=== PATIENT | male | born 1965 | race Caucasian/White ===

== ENCOUNTER 2020-07-05 13:15 | Outpatient (CLI) | payer OTHER, SELFPAY ==
--- NOTE | ~2020-07-05 | XR_ITS ---
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 No fracture or dislocation, periosteal reaction or bone destruction of the radius or ulna. Normal ali gnment at the elbow and wrist joints. 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
--- NOTE | ~2020-07-05 | XR_ITS ---
XR forearm RT 2V DATE: 07/05/2020 13:29 INDICATION: Bilateral forearm pain in the joint areas TECHNIQUE: AP and lateral views of the right forearm COMPARISON: None FINDINGS: There is osteoarthritic spurring at the elbow joint. There is spurring at the radial ulnar joint. No fracture or dislocation, periosteal reaction or bone destruction of the radius or ulna. Normal ali gnment at the elbow and wrist joints. IMPRESSION: Prominent osteoarthritic change at the right elbow joint Radioulnar spurring No fracture, dislocation, periosteal reaction or bone destruction Reviewed, dictated and finalized at location B.
== END 2020-07-05 13:16 | disposition home or self-care (01) ==
PROVIDERS: Visit Provider Orthopaedic Surgery
DX: M19.021 Primary osteoarthritis, right elbow (principal); M19.022 Primary osteoarthritis, left elbow
CPT/HCPCS: 73090

== ENCOUNTER 2022-04-25 11:05 | Outpatient (CLI) | payer OTHER, SELFPAY ==
--- NOTE | ~2022-04-25 | XR_ITS ---
EXAMINATION: XR chest 2V Exam Date/Time: 04/25/2022 11:16 ARTIST MANNEQUIN COLORING HISTORY: R06.00 - Dyspnea, unspecified, COUGH Comparison: None available. RESULT: Lines, tubes, and devices: None. Lungs and pleura: Flattened hemidiaphragms. Apical pleural thickening. Linear atelectasis/scar in th e left lung base. Senescent change. Cardiomediastinal silhouette: Unremarkable. Other: No acute osseous or upper abdominal finding. IMPRESSION: No acute cardiopulmonary process. Reviewed, dictated and finalized at location K. [facility]ORING
== END 2022-04-25 11:06 | disposition home or self-care (01) ==
PROVIDERS: PCP Internal Medicine; Visit Provider Internal Medicine
DX: R06.00 Dyspnea, unspecified (principal)
CPT/HCPCS: 71046

== ENCOUNTER 2022-05-31 13:59 | Outpatient (CLI) | payer OTHER, SELFPAY ==
--- NOTE | 2022-05-31 16:36 | WPDPFTINT ---
PFT Procedure Performed PFT Procedure Performed Plethysmography (Lung Vol) Diffusing Cap (DLCO) Flow Vol Loop Spirometry w/o Bronchodil PFT Interpretation This is a pulmonary function test with spirometry, plethysmography and diffusing capacity. The test was performed and results interpreted in accordance with the 2019 and 2005 ATS/ERS Task Force guidelines respectively using the Global Lung Function Initiative-2012 reference equations. Patient demonstrated good effort and cooperation. Reproducibility criteria were met. The quality of the spirometry maneuver was Grade A. Findings: Spirometry: There is decreased maximal expiratory air all airflow at all lung volumes with concave expiratory flow tracing. The FVC is 3.41 L, 70% predicted. The FEV1 is 2.10 L, 56% predicted. The FEV1: FVC ratio 62%. Plethysmography: The total lung capacity 7.66 L, 110% predicted. The functional residual capacity is 5.10 L, 141% predicted. The residual volume is 4.25 L, 199% predicted. Diffusing capacity: The diffusing capacity unadjusted for hemoglobin and carboxyhemoglobin is 23.4, 79% predicted. The diffusing capacity adjusted for alveolar volume is 4.53, 103% predicted. Impression: There is a moderately severe obstructive abnormality. The increase in residual volume is consistent with air trapping from an obstructive abnormality. The diffusing capacity is normal. There are no prior studies for comparison
== END 2022-05-31 14:00 | disposition home or self-care (01) ==
LOC: ANHPFT 14:00
PROVIDERS: PCP Internal Medicine; Visit Provider Internal Medicine
DX: R06.00 Dyspnea, unspecified (principal); R94.2 Abnormal results of pulmonary function studies
CPT/HCPCS: 94375; 94726; 94729

== ENCOUNTER 2024-05-14 03:37 | Day surgery (SDC) | payer MEDICARE, MEDICAID, SELFPAY ==
[2024-05-07 14:35] VITALS: BMI 28.8
--- OUTSIDE RECORDS SUMMARY | 2024-05-14 03:47 | XMS_ITS | Continuity of Care Document ---
Author Organization [facility] Address [address] [place] [address] [place] [address] Phone Care Team Providers Care Grocery Bagger Name Role Phone Getachew Magallanes MD Unavailable Unavailable Allergies, Adverse Reactions, Alerts Substance Reaction Status Criticality codeine Active No Information Medications Medication Instructions Dosage Effective Dates (start - stop) Status Comments Percocet 10 mg-325 mg tablet take 1 tablet by oral route every 6 hours as needed 1.00 tablet - Active PRN for pain, avoid driving or oeprate machines omeprazole 20 mg capsule,delayed release take 2 capsule by oral route every day before a meal 40 MG - Active Procedures Procedure Date OFFICE/OUTPATIENT VISIT, EST PREV VISIT, EST, AGE 40-64 OFFICE/OUTPATIENT VISIT, EST OFFICE/OUTPATIENT VISIT, EST OFFICE/OUTPATIENT VISIT, EST OFFICE/OUTPATIENT VISIT, EST OFFICE/OUTPATIENT VISIT, EST OFFICE/OUTPATIENT VISIT, EST PREV VISIT, NEW, AGE 40-64 Advance Directives Directive Yes / No Effective Date File Name No Information Encounters Encounter Description Practice Location Reason(s) For Visit Diagnoses Date Provider Providers Copied on Encounter OFFICE/OUTPA TIENT VISIT, EST [facility], [address] [place] [address], [id number], [place] tel:[phone] [facility] Medicine ED1 (chief complaint)anx iety1 (chief complaint)chr onic pain1 (chief complaint) Chronic pain syndromeMale erectile dysfunction, unspecifiedGener alized anxiety disorderHyperlip idemia Dec 6 Elpidio Chilel. [address], [place], [place], [id number] , [place]. tel:[phone] Referring Provider: Taco Herr [address], [place], [place], [id number]. tel:[phone] PREV VISIT, EST, AGE 40-64 [facility], [address], [place], [place], [address], [place] tel:[phone] [facility] Physical (chief complaint) Encntr for general adult medical exam w/o abnormal findings 5 Elpidio Chilel. [address], [address], [place], [place], [id number] , [place]. tel:[phone] Referring Provider: Taco Herr [address], [place], [place], [id number]. tel:[phone] OFFICE/OUTPA TIENT VISIT, EST [facility], [address], [place], [place], [address], [place] tel:[phone] [facility] anxiety (chief complaint)ins omnia (chief complaint)BEATRICE D (chief complaint)HLP (chief complaint)her quentin (chief complaint)ED (chief complaint) Dietary surveillance and counselingOther and unspecified hyperlipidemiaPa in in joint involving upper armBarrett esophagitisInsom quentin 5 Elpidio Chilel. [address], [place], [place], [id number] , [place]. tel:[phone] Referring Provider: Taco Herr [address], [place], [place], [address]. tel:[phone] OFFICE/OUTPA TIENT VISIT, EST [facility], [address], [place], [place], [address], [place] tel:[phone] [facility] abdominal pain (chief complaint)her quentin (chief complaint)elb ow pain (chief complaint) Other and unspecified hyperlipidemiaAb dominal PainHernia of other specified sites without mention of obstruction or gangrene 5 Elpidio Chilel. [address], [address], [place], [place], [address] , . tel:[phone] Referring Provider: Taco Herr [address], [place], [place], [address]. tel:[phone] OFFICE/OUTPA TIENT VISIT, [facility], [address] [place], [address], tel:[phone] [facility] pancreatitis (chief complaint)HLP (chief complaint)LFT (chief complaint)elb ow pain (chief complaint)anx iety (chief complaint) Dietary surveillance and counselingAcute pancreatitisGene ralized anxiety disorderOther and unspecified hyperlipidemia 5 Elpidio Chilel. [address], [address] [place], [address] , . tel:[phone] Referring Provider: Taco Herr [facility] [address], [place], [place], [id number]. tel:[phone] OFFICE/OUTPA TIENT VISIT, [facility], [address] [place] [address] [place], [address], [place] tel:[phone] [facility] HLP (chief complaint)LFT (chief complaint)thy roid (chief complaint)anx iety (chief complaint)elb ow pain (chief complaint) Dietary surveillance and counselingOther and unspecified hyperlipidemiaUn specified disorder of liverOther specified disorders of thyroidGeneraliz ed anxiety disorder 5 Elpidio Chilel. [address], [address] [place], [address] , [place]. tel:[phone] Referring Provider: Taco Herr [address], [place], [place], [address]. tel:[phone] OFFICE/OUTPA TIENT VISIT, [facility], [address] [place], [id number], [place] tel:[phone] [facility] colitis (chief complaint)anx iety (chief complaint)elb ow fracture (chief complaint) Dietary surveillance and counselingColiti s, enteritis, and gastroenteritis of presumed infectious originAcute duodenal ulcer without mention of hemorrhage or perforation, with obstructionGener alized anxiety disorderPain in joint involving upper arm 5 Elpidio Chilel. [address], [address], [place], [place], [address] , [place]. tel:[phone] Referring Provider: Taco Herr [facility] [address], [place], [place], [address]. tel:[phone] OFFICE/OUTPA TIENT VISIT, [facility], [address], [place], [place], [address], [place] tel:[phone] [facility] anxiety (chief complaint)elb ow pain (chief complaint)singh creatitis (chief complaint) Dietary surveillance and counselingAcute pancreatitisGene ralized anxiety disorderPain in joint involving upper arm 4 Elpidio Chilel. [address], [address], [place], [place], [address] , [place]. tel:[phone] Referring Provider: Taco Herr [facility] [address], [place], [place], [id number]. tel:[phone] PREV VISIT, NEW, AGE 40-64 [facility], [address], [place], [place], [address], [place] tel:[phone] [facility] Physical (chief complaint) Routine Medical ExamRoutine Medical Exam 4 Elpidio Chilel. [address], [place], [place], [address] , [place]. tel:[phone] Family History Family Member Type Diagnosis Age At Onset Mother Problem (finding) Unknown Disease Father Problem (finding) Unknown Disease Payers Payer name Insurance type Covered green party ID Authoriza tion(s) No Information Social History Type Description Quantity Date Captured Comments Alcohol Use Details No Caffeine Use Details Unknown Tobacco Use Status Occasional cigarette smoker Smoking Status Heavy tobacco smoker Sex Male Vital Signs Date / Time: Height Weight BMI Pulse Rate Blood Pressure Temperature Respiratory Rate Body Surface Area Head Circumference BMI percentile Pulse Ox Inhaled Ox 4:36 PM 180.34 cm 194.00 lbs 27.0 6 kg/m eter (2) 106 /min 123/93 mm[Hg] 98.3 F 18 /min Chief Complaint And Reason For Visit From encounter dated '01/06/2016 14:45'. ED1 (chief complaint). Description: Pt has ED. Pt has good libido. Pt denies any testicular pain ornodule. Pt has been having ED for several months. pt took his friend tricia which worked well. anxiety1 (chief complaint). Description: Pt has chronic anxiety and depression. Pt states that he has not been able to have sex for a while and he feels depresed about that, but overall he feels ok. Pt is off prozac, lamictal and trazodone. Pt feels better now regarding depression and anxiety except that he feels depressed due to ED pt denies any cyring spells. Pt denies any suicidal or homicdialthought. Pt does not want depression meds anymore chronic pain1 (chief complaint). Description: Pt has chornic elbow pain on right side. Pt seen ortho and was told he has ulnar nerve issue and he needs surgery but he told me he does not have time for surgery due to work Pt notices hand weakness sometimes. Plan Of Treatment Date Type Action Status Goal Tobacco cessation counseling completed Goal Tobacco cessation counseling completed Goal Tobacco cessation counseling completed Goal Tobacco cessation counseling completed Goal Tobacco cessation counseling completed Goal Tobacco cessation counseling completed Referral Ordered: Referral: Genrl Surg. ordered Referral Ordered: NUC MED HIDA (HEPATOBILIARY) SCAN ordered Referral Ordered: US EXAM, ABDOM, COMPLETE ordered Referral Ordered: Referral: Gastroentergy. Evaluate and treat. ordered Referral Ordered: Referral: Ortho Surg. Evaluate and treat. ordered History Of Present Illness Encounter Date Complaint History Of Prese nt Illness chronic pain1 Pt has chornic e lbow pain on right side. Pt seen ortho and was told he has ulnar nerve issue and he needs surgery but he told me he does not have time for surgery due to work Pt notices hand weakness sometimes. anxiety1 Pt has chronic a nxiety and depression. Pt states that he has not been able to have sex for a while and he feels depresed about that, but overall he feels ok. Pt is off prozac, lamictal and trazodone. Pt feels better now regarding depression and anxiety except that he feels depressed due to ED pt denies any cyring spells. Pt denies any suicidal or homicdial thought. Pt does not want depression meds anymore ED1 Pt has ED. Pt noble s good libido. Pt denies any testicular pain or nodule. Pt has been having ED for several months. pt took his friend tricia which worked well. Physical Pt needs annual physical. Pt has HLP. Pt taks zocor. Pt denies any myalgia. Pt still has mildly elevated Tc. Pt has chronic right elbow pain with radiation to right forearm. Pt is seeing ortho and will do NCS soon. pt has chornic GERD and liat esophagus. Pt is taking omeprzole 40 mg daily and denies any GERd symptoms Pt denies any GI complaitns Pt still has not seen GI yet. Pt missed his appoitnment twice, Pt states that trazodone works well for sleep but he thinks it is too strong. elbow pain Pt has low libid o and ED for several months. Pt denies any testicular pain or issue ED Pt has low libid o and ED for several months. Pt denies any testicular pain or issue hernia Additional infor mation: Pt recently had abdominal hernia surgery. PT c/o pain around umblical area/ Pt denies any drainage. Pt denies any other type of abd pain. Pt did not don HIDA scan. HLP Pt states that h e takes zocor but he is not taking daily. He still has not done lab yet GERD Additional infor mation:Pt has corral esophagus. Pt takes omerpazole but only once per day. Pt is noncompliant. Pt denies any GI complaints. insomnia The patient pres ents for insomnia. Relevant history: a BMI of 27.89. Additional information: Pt states that he hsa diffiuclty falling asleep. Pt denies any snoring or any daytime fatigue. anxiety Additional infor mation: Pt has anxiety and depression and mood swings. Pt has been taking prozac and lamictal and doing ok. Pt denies any suicidal thought. Instructions Date Instruction Additional Infor mation Prescribed Activity and Exercise Education Related to Dietary Surveillance and Counseling Prescribed Diet Educ ation/Lifestyle Education Regarding Diet Related to Dietary Surveillance and Counseling Decrease caloric intake Related to Dietary surveillance counseling Physical activity counseling Rel ated to Dietary surveillance counseling Physical activity counseling Rel ated to Dietary surveillance counseling Decrease caloric intake Related to Dietary surveillance counseling Dietary counseling Related to Di etary surveillance counseling Decrease caloric intake Related to Dietary surveillance counseling Decrease caloric intake Related to Dietary surveillance counseling Dietary counseling Related to Di etary surveillance counseling Assessments Type Assessment Date assessment Chronic pain syndrome 6 assessment Male erectile dysfunction, unspe cified assessment Generalized anxiety disorder Dec assessment Hyperlipidemia Mental Status Date Cognitive Assessment Orientation - [place] ed to time, place, person, situation.
--- OUTSIDE RECORDS SUMMARY | 2024-05-14 03:47 | XMS_ITS | Clinical Summary ---
Author Organization [facility] Address [address] [place] [address] Care Team Providers Care Log Buncher Name Role Phone Elio Gtz MD Unavailable [phone] Thony Jewell MD Primary Care Provider [phone] Renea Maxwell MD Unavailable [phone] Kathi Espino Unavailable [phone] Allergies No known active allergies Medications Anoro Ellipta 62.5-25 mcg/actuation blister with device 1 puff daily 3 Active losartan (COZAAR) 50 mg tablet Take 1 tablet (50 mg total) by mouth daily 4 Active metoprolol tartrate (LOPRESSOR) 50 mg immediate release tablet Take 1 tablet (50 mg total) by mouth 2 (two) times a day Active clopidogreL (PLAVIX) 75 mg tablet Take 1 tablet (75 mg total) by mouth daily Active aspirin 81 mg chewable tabletIndicatio ns:prevention of thrombosis Take 1 tablet (81 mg total) by mouth daily 30 tablet 09/25/19 25 Active ezetimibe (ZETIA) 10 mg tablet Take 1 tablet (10 mg total) by mouth nightly 30 tablet 09/25/19 25 Active nitroglycerin (NITROSTAT) 0.[address] 1 tablet (0.4 mg total) under the tongue every 5 (five) minutes as needed for chest pain 30 tablet 09/25/19 25 Active rosuvastatin (CRESTOR) 40 mg tablet Take 1 tablet (40 mg total) by mouth nightly 30 tablet 09/25/19 25 Active albuterol HFA (ProAir HFA) 90 mcg/actuation inhaler Inhale 2 puffs every 4 (four) hours as needed for wheezing or shortness of breath 8.5 g 09/25/19 25 Active Active Problems Problem Noted Date Diagnosed Date Chest pain, unspecified type 09/24/2023 CAD (coronary artery disease) 08/28/2022 Chest pain 07/29/2021 Surgical History Surgery Date Site/Laterality Comments FACIAL SURGERY LEG SURGERY HERNIA REPAIR Medical History Medical History Date Comments Broken jaw (HCC) Depression Hypertension CAD (coronary artery disease) Lung disease Social History Tobacco Use Types Packs/Day Years Used Date Smoking Tobacco: Every Day Cigarettes Smokeless Tobacco: Never Tobacco Cessation:Ready to Q uit: Yes; Counseling Given: Yes Social Connection and Isolat ion Panel [NHANES] Answer Date Recorded In a typical week, how many times do you talk on the phone with family, friends, or neighbors? More than three times a week 07/29/2021 How often do you get togethe r with friends or relatives? More than three times a week 07/29/2021 How often do you attend chur or jewish services? Never 07/29/2021 Do you belong to any clubs o r organizations such as nondenominational groups, unions, fraternal or athletic groups, or school groups? No 07/29/2021 How often do you attend meet ings of the clubs or organizations you belong to? Never 07/29/2021 Are you , , di vorced, , never , or living with a partner? Living with partner 07/29/2021 AUDIT-C Answer Date Recorded Q1: How often do you have a drink containing alcohol? Never 09/24/2023 Q2: How many drinks containi ng alcohol do you have on a typical day when you are drinking? Patient does not drink Q3: How often do you have si x or more drinks on one occasion? Never 09/24/2023 Overall Financial Resource Strain (CARDIA) Answe r Date Recorded How hard is it for you to pa y for the very basics like food, housing, medical care, and heating? Somewhat hard 07/29/2021 Hunger Vital Sign Answer Date Recorded Within the past 12 months, y ou worried that your food would run out before you got the money to buy more. Never true 07/30/19 22 Within the past 12 months, t he food you bought just didn't last and you didn't have money to get more. Never true 07/29/2021 PRAPARE - Transportation Answer Date Re corded In the past 12 months, has l ack of transportation kept you from medical appointments or from getting medications? No 07/15 In the past 12 months, has l ack of transportation kept you from meetings, work, or from getting things needed for daily living? No 07/29/2021 Housing Stability Vital Sign Answer Jose e Recorded In the last 12 months, was t here a time when you were not able to pay the mortgage or rent on time? No 07/29/2021 In the last 12 months, how many places have you lived? 1 07/29/2021 In the last 12 months, was t here a time when you did not have a steady place to sleep or slept in a correction (including now)? No 07/29/2021 Personal Safety Answer Date Recorded Have you ever been in or are you currently in a harmful physical or emotional relationship or is someone making you feel afraid or unsafe? 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 Gender Identity Not on file Sexual Orientation Not on file Obstetrics History Last Filed Vital Signs Vital Sign Reading Time Taken Comments Blood Pressure 132/87 09/25/2023 4:15 PM CDT Pulse 81 09/25/2023 4:15 PM CDT Temperature 36.7 ??C (98 ??F) 09/25/2023 4:15 PM CDT Respiratory Rate 18 09/25/2023 4:15 PM CDT Oxygen Saturation 95% 09/25/2023 4:15 PM CDT Inhaled Oxygen Concentration - - Weight 104.3 kg (230 lb) 09/24/2023 10:38 PM CDT Height 177.8 cm (5' 10 ) 09/24/2023 10:38 PM CDT Body Mass Index 33 09/24/2023 10:38 PM CDT Plan of Treatment Health Maintenance Due Date Last Done Comments Colon Cancer Screening-Colonoscopy 1966 Depression Screening 1966 Hepatitis C Screening 1966 Prostate Cancer Screening-PSA 1966 DTaP/Tdap/Td Vaccine (1 - Tdap) 1977 Hepatitis B Screening 1984 Regular Well Visit/Exam 18-64 1984 Pneumococcal vaccine <65 (2 of 2 - PCV) 04/10/2015 1 06/11/2013 Zoster Vaccine (1 of 2) 2016 Influenza Vaccine (#1) 2023 04/10/2014 Medical Devices Implanted Type Area Aquaculture Farm Manager Device Identifier Shelf Expiration Date Model / Serial / Lot V[employer] Vascular 29668-11 Device Clsr Perclose Prostyle Sut-Mediatd Closure-Repair Sys - [id number] Implanted:Qty: 1 on 07/29/2021 by Elio Gtz MD at [facility] [employer] [id number] / / [employer] [id number] Device Clsr Perclose Prostyle Sut-Mediatd Closure-Repair Sys - [id number] Implanted:Qty: 1 on 07/29/2021 by Elio Gtz MD at [facility] [employer] [id number] / / Impella Cp Percutaneous Left Ventricular Assist Device [id number] - [id number] - [id number] Implanted:Qty: 1 on 07/29/2021 by Elio Gtz MD at [facility] [employer] 05/16/2023 [id number] / [id number] / [id number] [employer] X [id number] Resolute [place] 3.5mm 2.1-2.7fr 22mm 140cm Rapid Exchange - [id number] Implanted:Qty: 1 on 07/29/2021 by Elio Gtz MD at [facility] [employer] 01/06/2024 [id number] / / [id number] Vidal [employer] Device Clsr Perclose Prostyle Sut-Mediatd Closure-Repair Sys [id number] - [id number] Implanted:Qty: 1 on 09/07/2022 by Elio Gtz MD at [facility] [employer] 05/16/2024 [id number] / / [id number] [place] [address] MEDICARE Advance Directives For more information, please contact: [phone] * Full Code (Latest Code Status on File) Date Activated Date Inactivated Comments 09/24/2023 5:28 AM 09/25/2023 10:14 PM * Full Code Date Activated Date Inactivated Comments 09/07/2022 1:36 PM 09/07/2022 7:10 PM * Full Code Date Activated Date Inactivated Comments 07/29/2021 5:47 AM 07/31/2021 6:41 PM Care Teams Log Buncher Relationship Specialty Start Date End Date Thony Jewell MD PCP - General Family Practice 08/29/22 Elio Gtz MD Consulting Physician Interventional Cardiology 07/31/21 Renea Maxwell MD [address] [place] [address] Consulting Physician Cardiology 09/25/23 [place] [address] [address] [address] Physician Pattern Marker Orthopedic Surgery 09/25/23
--- OUTSIDE RECORDS SUMMARY | 2024-05-14 03:47 | XMS_ITS | Clinical Summary ---
Author Organization [facility] Address [facility] [place] [address] [place] [address] Care Team Providers Care Ingot Passer Name Role Phone Unavailable Primary Care Provider Unavailabl e Social History Tobacco Use Types Packs/Day Years Used Date Smoking Tobacco: Never Assessed Sex and Gender Information Value Date Recorded Sex Assigned at Not on file Legal Sex Male 8:32 PM CDT Gender Identity Not on file Sexual Orientation Not on file Plan of Treatment Health Maintenance Due Date Last Done Comments Colorectal Cancer Screening Colonoscopy (10 Years) 1966 Annual Physical 1969 Hepatitis C 1984 DTaP, Tdap and Td Vaccines ( 1 - Tdap) 1985 Hepatitis B Vaccines (1 of 3 - 19+ 3-dose series) 1985 Zoster Vaccines (1 of 2) 2016 COVID-19 Vaccine (2023-2 5 season) 2023 Influenza Adult (#1) 2024 Meningococcal B Vaccine Aged Out No l onger eligible based on patient's age to complete this topic Meningococcal Vaccine Aged Out No andres thalia eligible based on patient's age to complete this topic Pneumococcal Vaccine: Pediat rics (0 to 5 Years) and At-Risk Patients (6 to 64 Years) Aged Out No longer eligible b ased on patient's age to complete this topic RSV Immunizations Under 20 Months Aged Out No longer eligible based on patient's age to complete this topic
--- OUTSIDE RECORDS SUMMARY | 2024-05-14 03:47 | XMS_ITS | CONTINUITY OF CARE DOCUMENT ---
Author Name rosegirma galindojuan Address Unknown Organization [facility] Address [address] [facility] [address] [place] [address] Phone [phone] Care Team Providers Care Contact Lens Technician Name Role Phone Elio Gtz MD Unavailable Elio Gtz MD Unavailable [phone] PROBLEMS Condition Status Date Provider Notes CAD (coronary artery disease) active Elio Gtz MD Hypertension, uncontrolled active Elio smith MD Hyperlipidemia active Elio Gtz MD Tobacco abuse active Elio Gtz MD NSTEMI active Elio Gtz MD Epigastric discomfort active Elio Gtz MD ENCOUNTERS Date Type Provider Location Encounter Diag nosis 0 - 0 In-person encounter Office Visit Elio Gtz MD [facility] 5 - 5 In-person encounter Office Visit Elio Gtz MD [facility] Epigastric discomfort 1 - 1 In-person encounter Office Visit Elio Gtz MD [facility] 2 - 2 In-person encounter Office Visit Elio Gtz MD [facility] 3 - 3 In-person encounter Office Visit Elio Gtz MD [facility] 2 - 2 In-person encounter Office Visit Elio Gtz MD [facility] CAD (coronary artery disease)Hypertension, uncontrolledHyperlipidemiaTobacco abuseNSTEMI VITAL SIGNS Date Observation Value Provider Body Mass Index (Ratio) 31.71 kg/m2 Lorenzo Gtz MD blood pressure, cuff size regular Ke rri Christopherduglasnelydiadio blood pressure, diastolic 86 mm[Hg] Ke rri Christopherduglasnelydiaelddakotah blood pressure, systolic 144 mm[Hg] Bhavna Yuandio oxygen saturation, oximetry 96 % Luna Christopherduglasnathalylydiadio respiratory rate E&M 12 /min Luna G ruenenfelder pulse rate 99 /min Luna Lissye lder weight E&M 221 [lb_av] Luna Christopherurimaryanne [facility] height E&M 70 [in_i] Luna Christophernia [facility] Body Mass Index (Ratio) 34.58 kg/m2 Lorenzo Gtz MD blood pressure, diastolic 75 mm[Hg] taryn Seth blood pressure, systolic 103 mm[Hg] She oneida Dorinda pulse rate 88 /min Shazia Dorinda respiratory rate E&M 20 /min Shazia Seth blood pressure, cuff size regular taryn Seth oxygen saturation, oximetry 98 % Shazia Seth weight E&M 241 [lb_av] Shazia Seth height E&M 70 [in_i] Shazia Seth weight E&M 240 [lb_av] Ophelia Lentz in Body Mass Index (Ratio) 34.43 kg/m2 Lorenzo Gtz MD blood pressure, diastolic 90 mm[Hg] Ri evelyn Padron blood pressure, systolic 130 mm[Hg] Bill jocelynn Padron oxygen saturation, oximetry 98 % Jo Ann Padron blood pressure, cuff size large Ri evelyn Padron respiratory rate E&M 16 /min Bernie Padron pulse rate 75 /min Jo Ann encinas weight E&M 240 [lb_av] Jo Ann encinas height E&M 70 [in_i] Jo Ann encinas Body Mass Index (Ratio) 33.28 kg/m2 Lorenzo iq Shamim blood pressure, cuff size large Mary rivas [place] blood pressure, diastolic 90 mm[Hg] Mary rivas [place] blood pressure, systolic 139 mm[Hg] Bry jocelynn [place] oxygen saturation, oximetry 99 % Fatemeh Segovia respiratory rate E&M 16 /min Courtney rosi [place] pulse rate 82 /min Fatemeh Lázaro swanson weight E&M 232 [lb_av] Fatemehshaun Sesay d height E&M 70 [in_i] Fatemeh Sesay d Body Mass Index (Ratio) 36.58 kg/m2 Lorenzo iq Shamim blood pressure, cuff size large Ke rri Christopheruenerhina blood pressure, diastolic 86 mm[Hg] Ke rri Gruenenfelddakotah blood pressure, systolic 122 mm[Hg] Ker ri Romero oxygen saturation, oximetry 97 % Luna Romero respiratory rate E&M 16 /min Luna G malikaenenfelder pulse rate 71 /min Luna Gruenenfe lder weight E&M 255 [lb_av] Luna Gruenenfe lder height E&M 70 [in_i] Luna Gruenenfe lder Body Mass Index (Ratio) 32.14 kg/m2 Lorenzo iq Shamim MD blood pressure, diastolic 90 mm[Hg] Li nkLogic blood pressure, systolic 140 mm[Hg] Ameena kLogic blood pressure, diastolic 90 mm[Hg] Lata Seymour blood pressure, systolic 140 mm[Hg] Vinnie Seymour oxygen saturation, oximetry 96 % Wm Seymour respiratory rate E&M 18 /min Larry Seymour pulse rate 81 /min Wm encinas weight E&M 224 [lb_av] Wm encinas height E&M 70 [in_i] Wm encinas RESULTS Date Observation Value Provider Reference Range Interpretation Location Estimated Glomerular Filtration Rate (calc) 87 mL/min/{1.73 _m2} [facility] >=60 Normal C, [place] [address] cholesterol, non-HDL, total 109 mg/dL [facility] C, [place] [address] lipoprotein, beta, serum, point, quantitative, calculated 75 mg/dL [facility] <=129 Normal C, [place] [address] HDL CHOLESTEROL 37 mg/dL [facility] >=40 Low C, [place] [address] triglyceride, serum, fasting 168 mg/dL [facility] <=149 High C, [place] [address] cholesterol, serum 146 mg/dL [facility] 30-199 Normal C, [place] [address] aspartate aminotransferase (SGOT), serum 24 1/L [facility] 10-50 Normal C, [place] [address] alanine aminotransferase (SGPT), serum 31 1/L [facility] 7-55 Normal C, [place] [address] Alkaline phosphatase 131 [facility] 40-130 High C, [place] [address] albumin, serum 4.6 g/dL [facility] 3.5-5.0 Normal C, [place] [address] protein, total, serum 8.4 g/dL [facility] 6.5-8.5 Normal C, [place] [address] bilirubin, serum, total 0.4 mg/dL [facility] 0.1-1.2 Normal C, [place] [address] calcium, serum 9.9 mg/dL [facility] 8.5-10.3 Normal C, [place] [address] blood glucose, random 98 mg/dL [facility] 70-199 Normal C, [place] [address] creatine, serum 1.01 mg/dL [facility] 0.80-1.30 Normal C, [place] [address] urea nitrogen, blood 9 mg/dL [facility] 6-25 Normal C, [place] [address] anion gap, serum 14 mmol/L [facility] 2-15 Normal C, [place] [address] carbon dioxide, venous blood 26 mmol/L [facility] 22-32 Normal C, [place] [address] chloride, serum 100 mmol/L [facility] 97-110 Normal C, [place] [address] potassium, serum 4.4 MMOL/L [facility] 3.3-4.9 Normal , [place] [address] sodium, serum 140 mmol/L [facility] 135-145 Normal C, [place] [address] prothrombin time (patient) 10.2 s [facility] 9.0-11.5 Normal international normalized ratio (INR) 1.0 [facility] Normal mean platelet volume 9.8 fL [facility] 7.5-12.5 Normal platelet count 365 THOUSAND/UL [facility] 140-400 Normal red blood cell distribution width 13.5 % [facility] 11.0-15.0 Normal mean corpuscular hemoglobin concentration, RBC 32.6 G/DL [facility] 32.0-36.0 Normal mean corpuscular hemoglobin, RBC 30.3 pg [facility] 27.0-33.0 Normal mean corpuscular volume, RBC 92.8 fL [facility] 80.0-100.0 Normal hematocrit, blood 48.7 % [facility] 38.5-50.0 Normal hemoglobin electrophoresis, blood 15.9 [facility] 13.2-17.1 Normal erythrocyte (RBC) count 5.25 MILLION/UL [facility] 4.20-5.80 Normal leukocyte (white blood cells) count, blood 9.5 THOUSAND/UL [facility] 3.8-10.8 Normal calcium, serum 10.0 mg/dL [facility] 8.6-10.3 Normal carbon dioxide, venous blood 28 mmol/L [facility] 20-32 Normal chloride, serum 103 mmol/L [facility] 98-110 Normal potassium, serum 5.3 mmol/L [facility] 3.5-5.3 Normal sodium, serum 139 mmol/L [facility] 135-146 Normal urea nitrogen/creatinine ratio, serum NOT APPLICABLE (calc) [facility] 6-22 creatinine, serum 1.01 mg/dL [facility] 0.70-1.30 Normal urea nitrogen, blood 14 mg/dL [facility] 7-25 Normal blood glucose, random 89 mg/dL [facility] 65-99 Normal cholesterol, non-HDL, total 85 MG/DL (CALC) [facility] <130 Normal cholesterol/HDL ratio, serum, percent 3.2 (calc) [facility] <5.0 Normal LDL cholesterol, serum 62 MG/DL (CALC) [facility] Normal triglyceride, serum, fasting 156 mg/dL [facility] <150 High HDL cholesterol, serum 38 mg/dL [facility] > OR = 40 Low cholesterol, serum 123 mg/dL [facility] <200 Normal alanine aminotransferase (SGPT), serum 43 1/L [facility] 9-46 Normal aspartate aminotransferase (SGOT), serum 21 1/L [facility] 10-35 Normal alkaline phosphatase, serum 133 1/L [facility] 35-144 Normal bilirubin, serum, total 0.4 mg/dL [facility] 0.2-1.2 Normal albumin/globulin ratio, serum 1.4 (calc) [facility] 1.0-2.5 Normal globulins, serum, total 3.2 G/DL (CALC) [facility] 1.9-3.7 Normal albumin, serum 4.5 g/dL [facility] 3.6-5.1 Normal protein, total, serum 7.7 g/dL [facility] 6.1-8.1 Normal calcium, serum 10.0 mg/dL [facility] 8.6-10.3 Normal carbon dioxide, venous blood 32 mmol/L [facility] 20-32 Normal chloride, serum 103 mmol/L [facility] 98-110 Normal potassium, serum 5.4 mmol/L [facility] 3.5-5.3 High sodium, serum 140 mmol/L [facility] 135-146 Normal urea nitrogen/creatinine ratio, serum NOT APPLICABLE (calc) [facility] 6-22 creatinine, serum 1.01 mg/dL [facility] 0.70-1.30 Normal urea nitrogen, blood 11 mg/dL [facility] 7-25 Normal blood glucose, random 99 mg/dL [facility] 65-139 Normal cholesterol, non-HDL, total 112 MG/DL (CALC) [facility] <130 Normal cholesterol/HDL ratio, serum, percent 3.6 (calc) [facility] <5.0 Normal LDL cholesterol, serum 82 MG/DL (CALC) [facility] Normal triglyceride, serum, fasting 201 mg/dL [facility] <150 High HDL cholesterol, serum 43 mg/dL [facility] > OR = 40 Normal cholesterol, serum 155 mg/dL [facility] <200 Normal HISTORY OF MEDICATION USE Medication Status Instructions Dates Provider Indications Com ments clopidogrel 75 mg tablet active TAKE 1 TABLET BY MOUTH EVERY DAY Radha Tai metoprolol tartrate 50 mg tablet active TAKE 1 TABLET BY MOUTH TWICE DAILY Radha Tai isosorbide mononitrate 30 mg tablet extended release 24 hr active Take 1 tablet by mouth once a day Elio Gtz MD Brilinta 90 mg tablet completed TAKE 1 TABLET BY MOUTH TWICE DAILY - Luna Jasso Brilinta 90 mg tablet completed Take 1 tablet by mouth twice a day - Dorothy Christian rosuvastatin 40 mg tablet active TAKE 1 TABLET BY MOUTH EVERY DAY Celestino Cordero aspirin 81 mg tablet,chewable active CHEW AND SWALLOW 1 TABLET BY MOUTH EVERY DAY Teresa Paulino ezetimibe 10 mg tablet completed TAKE ONE TABLET BY MOUTH EVERY DAY - Elio Gtz MD Plavix 75 mg tablet completed TAKE 1 TABLET ONCE DAILY - Radha Tai ezetimibe 10 mg tablet active Take 1 tablet by mouth once a day Elio Gtz MD ezetimibe 10 mg tablet completed TAKE 1 TABLET BY MOUTH DAILY - Elio Gtz MD bupropion HCl 150 mg tablet extended release 24 hr active TAKE 1 TABLET BY MOUTH EVERY DAY Fatemeh Luca losartan 50 mg tablet active TAKE 1 TABLET BY MOUTH EVERY DAY Radha Tai metoprolol tartrate 50 mg tablet completed TAKE 1 TABLET BY MOUTH TWICE A DAY - Radha Tai metoprolol tartrate 25 mg tablet completed Take 1 tablet by mouth twice a day - Elio Gtz MD bupropion HCl 150 mg tablet extended release 24 hr completed Take 1 tablet by mouth once a day - Ophelia Ferrara ezetimibe 10 mg tablet completed Take 1 tablet by mouth once a day - Elio Gtz MD aspirin 81 mg tablet,chewable completed Take 1 tablet by mouth once a day - Teresa Paulino albuterol sulfate 90 mcg/actuation HFA aerosol inhaler active Inhale 2 puff using inhaler as directed Luna Jasso nitroglycerin 0.4 mg tablet, sublingual active Place 1 tablet under tongue as directed Luna Jasso losartan 25 mg tablet completed Take 1 tablet by mouth once a day - Elio Gtz MD rosuvastatin 40 mg tablet completed Take 1 tablet by mouth once a day - Teresa Paulino bupropion HCl 150 mg tablet extended release 24 hr completed - Elio Gtz MD SOCIAL HISTORY Date Observation Value Provider drug use, illicit, d rug of choice marijuana Elio Gtz MD drug use yes Elio Moralez D alcohol use no Elio Swanson smoking/tobacco cess ation, patient education and counseling yes Elio Gtz MD number of years as a smoker 30 a Elio Gtz MD smoking history, tot al pack/day 5 cigs a day Elio Gtz MD cigarette use yes Elio Gtz MD smoking status Current every day smoker S gio Gtz MD smoking history, tot al pack/day 5 cigs a day Shazia Seth cigarette use yes Shazia Seth smoking status Current every day smoker Nadya Seth social history E&M S moking History: P vadim currently smokes every day. P vadim has been counseled to quit. Elio Gtz MD social history reviewed E&M revi ewed - no changes required Elio Gtz MD smoking/tobacco cess ation, patient education and counseling yes Jo Ann Padron number of years as a smoker 30 a Jo Ann Padron smoking history, tot al pack/day 1 Jo Ann Padron cigarette use yes Jo Ann boudreaux smoking status Current every day smoker R cathy Padron smoking/tobacco cess ation, patient education and counseling yes Elio Gtz MD social history E&M S moking History: P vadim currently smokes every day. Elio Gtz MD social history reviewed E&M revi ewed - no changes required Elio Gtz MD number of years as a smoker 30 a Fatemeh Segovia smoking history, tot al pack/day 1 Fatemeh Segovia cigarette use yes Fatemeh Amrit jeong smoking status Current every day smoker M cathy Luca number of years as a smoker 30 a Luna Jasso smoking history, tot al pack/day 1 Luna Romero cigarette use yes Luna wharton smoking status Current every day smoker K raji Jasso social history E&M S moking History: P vadim currently smokes every day. Elio Gtz MD social history reviewed E&M revi ewed - no changes required Elio Gtz MD drug use, illicit, d rug of choice marijuana Wm Seymour drug use yes Wm encinas alcohol use no Wm encinas number of years as a smoker 30 a Wm Seymour smoking history, tot al pack/day 1 Wm Seymour cigarette use yes Wm gama smoking status Current every day smoker L Agustochristal Lion FUNCTIONAL STATUS Date Observation Value Provider HRA, CV Assess/Plan, Angina (inactive) Management Plan continue current therapy Elio Gtz MD HRA, CV Assess/Plan, Angina (inactive) Management Plan continue current therapy Elio Gtz MD HRA, CV Assess/Plan, Angina (inactive) Management Plan continue current therapy Elio Gtz MD INSURANCE PROVIDERS Payer name Policy type / Coverage type [facility] [id number] HEALTHCARE AND FAMILY SERVICES Medicaid 1 [id number] ADVANCE DIRECTIVES Name Date DISCUSSED - NO DECISION MADE TREATMENT PLAN Date Name Performer [id number],N, Elio moralez MD [id number],S, Elio moralez MD [id number],S, Elio moralez MD [id number],SEilo MD [id number],C, B P today: 130/90 P rior BP: 139/90 (11/25/2021) Labs Reviewed: C reat: 1.01 (01/03/2022) C hol: 155 (01/03/2022) HDL: 43 (01/03/2022) LDL: 82 MG/DL (CALC) (01/03/2022) T (01/03/2022) Elio Gtz MD [id number],C,L DL 82, TG 201, advised him to make diet changes and continue on current medications. Elio Gtz MD [id number],C, P t has diffuse CAD due to high LDL and TG and smoking. He has stopped smoking. Pt has mild LAD disease after diagonal bifurcation and siginifcant diagonal disease. Elio Gtz MD [id number],C, Successful unprotected LM PCI for severe left main (80%) & severe ostial LAD (80%) stenosis with 3.5X22 roman stent extending from proximal LAD to ostial part of the left main. Lad part of the stent was post dilated with 4.0 NC balloon and left main part of the stent was post dilated with 5.0 NC balloon. MARIA R 3 flow with good angiographic result noted. Mid LAD after diagonal bifurcation has 50% stenosis. Diagonal is a major branch which bifurcates. These are relatively a smaller size but long both of these branches have 70-80% stenosis. Leaving these for medical management due to relatively smaller size. RCA is a dominant which has diffuse coronary ectasia in proximal and mid segment. Entire vessel is diffusely diseased gives rise to large PL and PDA. Asymptomatic. on GDMT W ill check routine stress test now to assess his exercise tolerance. Elio Gtz MD [id number],S, His updated medication list for this problem includes: Rosuvastatin 40 Mg Tablet (Rosuvastatin) ..... Take 1 tablet by mouth once a day Ezetimibe 10 Mg Tablet (Ezetimibe) ..... Take 1 tablet by mouth once a day Elio Gtz MD [id number],S, Successful unprotected LM PCI for severe left main (80%) & severe ostial LAD (80%) stenosis with 3.5X22 roman stent extending from proximal LAD to ostial part of the left main. Lad part of the stent was post dilated with 4.0 NC balloon and left main part of the stent was post dilated with 5.0 NC balloon. MARIA R 3 flow with good angiographic result noted. Mid LAD after diagonal bifurcation has 50% stenosis. Diagonal is a major branch which bifurcates. These are relatively a smaller size but long both of these branches have 70-80% stenosis. Leaving these for medical management due to relatively smaller size. RCA is a dominant which has diffuse coronary ectasia in proximal and mid segment. Entire vessel is diffusely diseased gives rise to large PL and PDA. Asymptomatic. on GDMT Elio Gtz MD [id number],S, S till smoking. Elio Gtz MD [id number],S, B P today: 139/90 P rior BP: 122/86 (08/26/2021) His updated medication list for this problem includes: Aspirin 81 Mg Tablet,chewable (Aspirin) ..... Take 1 tablet by mouth once a day Metoprolol Tartrate 25 Mg Tablet (Metoprolol tartrate) ..... Take 1 tablet by mouth twice a day Losartan 25 Mg Tablet (Losartan) ..... Take 1 tablet by mouth once a day Elio Gtz MD [id number],S,Recheck lipid s Elio Gtz MD [id number],B, Elio moralez MD [id number],B, Elio moralez MD [id number],C, Successful unprotected LM PCI for severe left main (80%) & severe ostial LAD (80%) stenosis with 3.5X22 roman stent extending from proximal LAD to ostial part of the left main. Lad part of the stent was post dilated with 4.0 NC balloon and left main part of the stent was post dilated with 5.0 NC balloon. MARIA R 3 flow with good angiographic result noted. Mid LAD after diagonal bifurcation has 50% stenosis. Diagonal is a major branch which bifurcates. These are relatively a smaller size but long both of these branches have 70-80% stenosis. Leaving these for medical management due to relatively smaller size. RCA is a dominant which has diffuse coronary ectasia in proximal and mid segment. Entire vessel is diffusely diseased gives rise to large PL and PDA. Asymptomatic. on GDMT Elio Gtz MD [id number],C,P t has diffuse CAD due to very high LDL and smoking. Pt has mild LAD disease after diagonal bifurcation and siginifcant diagonal disease. Elio Gtz MD [id number],S,T he Patient was reencouraged to stop smoking. Elio Gtz MD [id number],S,P t needs lab work to check lipid panel. His updated medication list for this problem includes: Ezetimibe 10 Mg Tablet (Ezetimibe) Rosuvastatin 40 Mg Tablet (Rosuvastatin) Elio Gtz MD [id number],C,U ncontrolled BP. Will order and RPM for pt. Pt needs cardiac rehab and smoking cessation. Will schedule renal Duplex, AA, and Carotid duplex for pt to check for any blockages. & #13;BP today: 140/90 His updated medication list for this problem includes: Metoprolol Tartrate 25 Mg Tablet (Metoprolol tartrate) Aspirin 81 Mg Tablet,chewable (Aspirin) Losartan 25 Mg Tablet (Losartan) Elio Gtz MD [id number],C,: I mpression: Successful unprotected LM PCI for severe left main (80%) & severe ostial LAD (80%) stenosis with 3.5X22 roman stent extending from proximal LAD to ostial part of the left main. Lad part of the stent was post dilated with 4.0 NC balloon and left main part of the stent was post dilated with 5.0 NC balloon. MARIA R 3 flow with good angiographic result noted. Mid LAD after diagonal bifurcation has 50% stenosis. Diagonal is a major branch which bifurcates. These are relatively a smaller size but long both of these branches have 70-80% stenosis. Leaving these for medical management due to relatively smaller size. RCA is a dominant which has diffuse coronary ectasia in proximal and mid segment. Entire vessel is diffusely diseased gives rise to large PL and PDA. Elio Gtz MD Cardiology:The Patient was reenc ouraged to stop smoking. Elio Gtz MD Cardiology:stable s tress test neg s till having cp and given his h/o CAD adn NSTEMI it is appropriate to start a long acting nitrate Elio Gtz MD Cardiology: H is updated medication list for this problem includes: Aspirin 81 Mg Tablet,chewable (Aspirin) ..... Chew and swallow 1 tablet by mouth every day Losartan 50 Mg Tablet (Losartan) ..... Take 1 tablet by mouth every day Metoprolol Tartrate 50 Mg Tablet (Metoprolol tartrate) ..... Take 1 tablet by mouth twice a day BP today: 144/86 P rior BP: 103/75 (08/18/2022) Labs Reviewed: C reat: 1.01 (08/30/2022) C hol: 123 (08/30/2022) HDL: 38 (08/30/2022) LDL: 62 MG/DL (CALC) (08/30/2022) T (08/30/2022) Elio Gtz MD Cardiology Elio Gtz MD Cardiology Elio Gtz MD Cardiology Elio Gtz MD Cardiology Elio Gtz MD Cardiology Elio Gtz MD Cardiology: B P today: 130/90 P rior BP: 139/90 (11/25/2021) Labs Reviewed: C reat: 1.01 (01/03/2022) C hol: 155 (01/03/2022) HDL: 43 (01/03/2022) LDL: 82 MG/DL (CALC) (01/03/2022) T (01/03/2022) Elio Gtz MD Cardiology:LDL 82, T G 201, advised him to make diet changes and continue on current medications. Elio Gtz MD Cardiology: P t has diffuse CAD due to high LDL and TG and smoking. He has stopped smoking. Pt has mild LAD disease after diagonal bifurcation and siginifcant diagonal disease. Elio Gtz MD Cardiology: Successful unprotected LM PCI for severe left main (80%) & severe ostial LAD (80%) stenosis with 3.5X22 roman stent extending from proximal LAD to ostial part of the left main. Lad part of the stent was post dilated with 4.0 NC balloon and left main part of the stent was post dilated with 5.0 NC balloon. MARIA R 3 flow with good angiographic result noted. Mid LAD after diagonal bifurcation has 50% stenosis. Diagonal is a major branch which bifurcates. These are relatively a smaller size but long both of these branches have 70-80% stenosis. Leaving these for medical management due to relatively smaller size. RCA is a dominant which has diffuse coronary ectasia in proximal and mid segment. Entire vessel is diffusely diseased gives rise to large PL and PDA. Asymptomatic. on GDMT W ill check routine stress test now to assess his exercise tolerance. Elio Gtz MD Cardiology: His updated medication list for this problem includes: Rosuvastatin 40 Mg Tablet (Rosuvastatin) ..... Take 1 tablet by mouth once a day Ezetimibe 10 Mg Tablet (Ezetimibe) ..... Take 1 tablet by mouth once a day Elio Gtz MD Cardiology: Successful unprotected LM PCI for severe left main (80%) & severe ostial LAD (80%) stenosis with 3.5X22 roman stent extending from proximal LAD to ostial part of the left main. Lad part of the stent was post dilated with 4.0 NC balloon and left main part of the stent was post dilated with 5.0 NC balloon. MARIA R 3 flow with good angiographic result noted. Mid LAD after diagonal bifurcation has 50% stenosis. Diagonal is a major branch which bifurcates. These are relatively a smaller size but long both of these branches have 70-80% stenosis. Leaving these for medical management due to relatively smaller size. RCA is a dominant which has diffuse coronary ectasia in proximal and mid segment. Entire vessel is diffusely diseased gives rise to large PL and PDA. [facility]. [facility] Elio Gtz MD Cardiology: S till smoking. Elio Gtz MD Cardiology: B P today: 139/90 P rior BP: 122/86 (08/26/2021) His updated medication list for this problem includes: Aspirin 81 Mg Tablet,chewable (Aspirin) ..... Take 1 tablet by mouth once a day Metoprolol Tartrate 25 Mg Tablet (Metoprolol tartrate) ..... Take 1 tablet by mouth twice a day Losartan 25 Mg Tablet (Losartan) ..... Take 1 tablet by mouth once a day Elio Gtz MD Cardiology:Recheck lipids Elio Gtz MD Cardiology Elio Gtz MD Cardiology Elio Gtz MD Cardiology: Successf ul unprotected LM PCI for severe left main (80%) & severe ostial LAD (80%) stenosis with 3.5X22 roman stent extending from proximal LAD to ostial part of the left main. Lad part of the stent was post dilated with 4.0 NC balloon and left main part of the stent was post dilated with 5.0 NC balloon. MARIA R 3 flow with good angiographic result noted. Mid LAD after diagonal bifurcation has 50% stenosis. Diagonal is a major branch which bifurcates. These are relatively a smaller size but long both of these branches have 70-80% stenosis. Leaving these for medical management due to relatively smaller size. RCA is a dominant which has diffuse coronary ectasia in proximal and mid segment. Entire vessel is diffusely diseased gives rise to large PL and PDA. Asymptomatic. on GDMT Elio Gtz MD Cardiology:Pt has di ffuse CAD due to very high LDL and smoking. Pt has mild LAD disease after diagonal bifurcation and siginifcant diagonal disease. Elio Gtz MD Cardiology:The Patie nt was reencouraged to stop smoking. Elio Gtz MD Cardiology:Pt needs lab work to check lipid panel. His updated medication list for this problem includes: Ezetimibe 10 Mg Tablet (Ezetimibe) Rosuvastatin 40 Mg Tablet (Rosuvastatin) Elio Gtz MD Cardiology:Uncontrol led BP. Will order and RPM for pt. Pt needs cardiac rehab and smoking cessation. Will schedule renal Duplex, AA, and Carotid duplex for pt to check for any blockages. BP today: 140/90 His updated medication list for this problem includes: Metoprolol Tartrate 25 Mg Tablet (Metoprolol tartrate) Aspirin 81 Mg Tablet,chewable (Aspirin) Losartan 25 Mg Tablet (Losartan) Elio Gtz MD Cardiology:07/29/21: I mpression: Successful unprotected LM PCI for severe left main (80%) & severe ostial LAD (80%) stenosis with 3.5X22 roman stent extending from proximal LAD to ostial part of the left main. Lad part of the stent was post dilated with 4.0 NC balloon and left main part of the stent was post dilated with 5.0 NC balloon. MARIA R 3 flow with good angiographic result noted. Mid LAD after diagonal bifurcation has 50% stenosis. Diagonal is a major branch which bifurcates. These are relatively a smaller size but long both of these branches have 70-80% stenosis. Leaving these for medical management due to relatively smaller size. RCA is a dominant which has diffuse coronary ectasia in proximal and mid segment. Entire vessel is diffusely diseased gives rise to large PL and PDA. Elio Gtz MD Date Name LIPID PANEL COMPREHENSIVE METABO LIC PANEL, W/EGFR PROTHROMBIN TIME WIT H INR CBC (H/H, RBC, INDIC ES, WBC, PLT) BASIC METABOLIC PANE L W/EGFR LIPID PANEL Complete Echo Stress Routine Complete Echo LIPID PANEL COMPREHENSIVE METABO LIC PANEL, W/EGFR LIPID PANEL LIPID PANEL Aorta Duplex Ultraso und Renal Artery Duplex Carotid Duplex Bilat eral Complete Echo Cardiac Rehab RPM (remote patient monitoring) HISTORY OF PROCEDURES Procedure Date Procedure Name Provider Procedure Notes S tatus Complex e/m visit add on Elio Gtz MD completed EKG Elio Gtz MD complete d EKG Elio Gtz MD complete d
--- OUTSIDE RECORDS SUMMARY | 2024-05-14 03:47 | XMS_ITS | Referral Summary ---
Author Organization [facility] Address [address] [place] [address] Care Team Providers Care Flight Purser Name Role Phone Elio Gtz MD Unavailable [phone] Thony Jewell MD Primary Care Provider [phone] Renea Maxwell MD Unavailable [phone] Kathi Espino Unavailable [phone] Allergies No known active allergies Medications Anoro [...] (coronary artery disease) 08/28/2022 Chest pain 07/29/2021 Social History Tobacco Use Types Packs/Day Years [...] How often do you attend chur or anabaptism services? Never 07/29/2021 Do you belong to any clubs o r organizations such as latter day groups, unions, fraternal or athletic groups, or [...] place to sleep or slept in a snf (including now)? No 07/29/2021 Personal Safety Answer Date Recorded Have you ever been in or are you currently in a harmful physical or emotional relationship or is someone making you feel afraid or unsafe? Denies 09/23/2023 Sex and Gender Information Value Date Recorded Sex Assigned at Not on file Legal Sex Male 5:20 PM IRON MELTER Gender Identity Not on file Sexual Orientation Not on file Last Filed Vital Signs Vital Sign Reading [...] 09/24/2023 10:38 PM CDT Plan of Treatment Not on file Medical Devices Implanted Type Area Movie Shot Cameraman Device Identifier Shelf Expiration Date Model / Serial / Lot Vidal Vascular 18834-19 Device Clsr Perclose Prostyle Sut-Mediatd Closure-Repair Sys - [id number] Implanted:Qty: 1 on 07/29/2021 by Elio Gtz MD at [facility] Vidal Vascular 84422-33 / / Vidal Vascular 48555-02 Device Clsr Perclose Prostyle Sut-Mediatd Closure-Repair Sys - [id number] Implanted:Qty: 1 on 07/29/2021 by Elio Gtz MD at [facility] Vidal Vascular [id number] / / Impella Cp Percutaneous Left Ventricular Assist Device [id number] - [id number] - [id number] Implanted:Qty: 1 on 07/29/2021 by Elio Gtz MD at [facility] [employer] 05/16/2023 [id number] / [id number] / [id number] Medtronic [employer] X [id number] Resolute [place] 3.5mm 2.1-2.7fr 22mm 140cm Rapid Exchange - [id number] Implanted:Qty: 1 on 07/29/2021 by Elio Gtz MD at [facility] [employer] 01/06/2024 [id number] / / [id number] Vidal Vascular Device Clsr Perclose Prostyle Sut-Mediatd Closure-Repair Sys 33064-63 - [id number] Implanted:Qty: 1 on 09/07/2022 by Elio Gtz MD at [facility] [employer] 05/16/2024 [id number] / / [id number] Insurance [facility] IDPA MEDICARE Advance Directives For more information, please contact: [phone] * Full Code (Latest Code Status on File) Date Activated Date Inactivated Comments 09/24/2023 5:28 AM 09/25/2023 10:14 PM * Full Code Date Activated Date Inactivated Comments 09/07/2022 1:36 PM 09/07/2022 7:10 PM * Full Code Date Activated Date Inactivated Comments 07/29/2021 5:47 AM 07/31/2021 6:41 PM Care Teams Flight Purser Relationship Specialty Start Date End Date Thony Jewell MD PCP - General Family Practice 08/29/22 Elio Gtz MD Consulting Physician Interventional Cardiology 07/31/21 Renea Maxwell MD [address] [place] [address] Consulting Physician Cardiology 09/25/23 [place] [address] [address] Physician Application Support Orthopedic Surgery 09/25/23
[2024-05-14 10:57] VITALS: BP 127/92; PULSE 74; RESP 16; TEMP 36.3; O2SAT 97
[2024-05-14] MEDS: LACTATED RINGERS 1,000 ML 150 ML IV CONT (11:03)
--- NOTE | 2024-05-14 11:42 | P.PNAN_ITS ---
Anes - Initial Pre Proc Eval Procedure: Operation Date: 05/14/24 11:30 Proposed Procedures p Esophagogastroduodenoscopy - Reed Foster MD Date/Time: 05/14/24 11:42 Surgeon: Reed Foster MD Pre Op Diagnosis: GERD,Vomiting,Cyclical vomiting syndrome Patient Data Age: 58 Gender: M Height: 1.78 m Weight: 93.4 kg Last Vital Signs Temp 36.3 C L 05/14/24 10:57 Pulse 74 05/14/24 10:57 Resp 16 05/14/24 10:57 BP 127/92 H 05/14/24 10:57 Pulse Ox 97 05/14/24 10:57 O2 Del Method Room Air 05/14/24 10:57 Allergies Allergy/AdvReac Type Severity Reaction Status Date / Time No Known Allergies Allergy Verified 05/14/24 10:51 Home Medications ?Medication ?Instructions ?Recorded ?Confirmed ?Type nitroglycerin 0.4 mg sublingual 0.4 mg sublingual Q5M PRN chest 07/13/22 05/06/24 Rx tablet (Nitrostat) pain #30 tabs aspirin 81 mg tablet,delayed 81 mg PO DAILY #90 tabs 11/07/22 05/14/24 Rx release (Adult Low Dose Aspirin) ondansetron 8 mg disintegrating 8 mg PO Q6H PRN nausea and 10/10/23 05/07/24 Rx tablet vomiting #20 tabs isosorbide dinitrate 30 mg tablet 30 mg PO BID 03/31/24 05/07/24 History albuterol sulfate 90 mcg/actuation 1 puff inhalation Q4H PRN 05/07/24 05/14/24 History aerosol inhaler shortness of breath or wheezing aspirin 81 mg chewable tablet 81 mg PO DAILY 05/07/24 05/14/24 History isosorbide mononitrate 30 mg 30 mg PO DAILY 05/07/24 05/14/24 History tablet,extended release 24 hr umeclidinium 62.5 mcg-vilanterol 1 inh inhalation Q24H 05/07/24 05/14/24 History 25 mcg/actuation powdr for inhalation (Anoro Ellipta) bupropion HCl 150 mg 24 hr tablet, 150 mg PO QAM #90 tabs 05/13/24 05/13/24 Rx extended release ezetimibe 10 mg tablet 10 mg PO DAILY #90 tabs 05/13/24 05/14/24 Rx rosuvastatin 40 mg tablet 40 mg PO DAILY #90 tabs 05/13/24 05/14/24 Rx Patient hx anesthesia problems: none Family hx anesthesia problems: none Results Review: All pre-operative results and documents have been reviewed as part of the pre- operative evaluation. 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, right Carpal tunnel syndrome of right wrist Cubital tunnel syndrome of both upper extremities Surgical History Surgical History H/O umbilical hernia repair Mandibular fracture Left tibial fracture S/P coronary artery stent placement Family History Family History Other Arthritis Depression Diabetes mellitus High cholesterol Hypertension Social History Social History Smoking packs per day: 0.25 Smoking cigarettes per day: 5.0 Years smoked: 30 Smoking pack-years: 7.50 Smoking status: Former smoker Tobacco type: cigarettes Alcohol intake: never Substance use: current Substance use type: marijuana Other substance usage details: NOT DAILY Lack of Transportation: No Lack of Food: Often True Current Housing: I Do Not Have Housing Concerned About Future Housing: YES Difficulty Paying Gas/Electric Bills: No Difficulty Paying for Meds: No Currently Unemployed: YES Education: High School Diploma/GED Difficulty w/ Childcare or Family Care: No Living arrangements: with family Gender identity (if verbalized by the patient): Male Spiritual care concerns: No Anes - Eval Final PreProcedure Day of Procedure 05/14/24 11:42 Patient weight: overweight Heart: regular rate and rhythm Lungs: clear to auscultation Airway: Mallampati scale class II Neurological: alert and oriented Last oral intake: >/= 8 hours ASA classification: III Emergent: no Anesthetic plan: proceed Anesthesia type and monitoring: general GIVS and standard monitoring Results Review: All pre-operative results and documents have been reviewed as part of the pre- operative evaluation. Informed Consent: The patient's anesthetic plan and its attendant risks and benefits were discussed with the patient/family/POA. Questions were solicited and answers provided to the satisfaction of the patient/family/POA.
--- NOTE | 2024-05-14 11:52 | PM.IMHP ---
H&P: HPI History of Present Illness Date/Time: 05/14/24 11:52 Chief Complaint: Vomiting Narrative: the patient had 3 distinct episodes of constant vomiting and retching during the last year. He is asymptomatic between episodes except for mild occasional discomfort in the epigastric region. He is referred for EGD. 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, right Carpal tunnel syndrome of right wrist Cubital tunnel syndrome of both upper extremities Surgical History Surgical History H/O umbilical hernia repair Mandibular fracture Left tibial fracture S/P coronary artery stent placement Family History Family History Other Arthritis Depression Diabetes mellitus High cholesterol Hypertension Social History Social History Smoking packs per day: 0.25 Smoking cigarettes per day: 5.0 Years smoked: 30 Smoking pack-years: 7.50 Smoking status: Former smoker Tobacco type: cigarettes Alcohol intake: never Substance use: current Substance use type: marijuana Other substance usage details: NOT DAILY Lack of Transportation: No Lack of Food: Often True Current Housing: I Do Not Have Housing Concerned About Future Housing: YES Difficulty Paying Gas/Electric Bills: No Difficulty Paying for Meds: No Currently Unemployed: YES Education: High School Diploma/GED Difficulty w/ Childcare or Family Care: No Living arrangements: with family Gender identity (if verbalized by the patient): Male Spiritual care concerns: No Meds Home Medications and Allergies Home Medications ?Medication ?Instructions ?Recorded ?Confirmed ?Type nitroglycerin 0.4 mg sublingual 0.4 mg sublingual Q5M PRN chest 07/13/22 05/06/24 Rx tablet (Nitrostat) pain #30 tabs aspirin 81 mg tablet,delayed 81 mg PO DAILY #90 tabs 11/07/22 05/14/24 Rx release (Adult Low Dose Aspirin) ondansetron 8 mg disintegrating 8 mg PO Q6H PRN nausea and 10/10/23 05/07/24 Rx tablet vomiting #20 tabs isosorbide dinitrate 30 mg tablet 30 mg PO BID 03/31/24 05/07/24 History albuterol sulfate 90 mcg/actuation 1 puff inhalation Q4H PRN 05/07/24 05/14/24 History aerosol inhaler shortness of breath or wheezing aspirin 81 mg chewable tablet 81 mg PO DAILY 05/07/24 05/14/24 History isosorbide mononitrate 30 mg 30 mg PO DAILY 05/07/24 05/14/24 History tablet,extended release 24 hr umeclidinium 62.5 mcg-vilanterol 1 inh inhalation Q24H 05/07/24 05/14/24 History 25 mcg/actuation powdr for inhalation (Anoro Ellipta) bupropion HCl 150 mg 24 hr tablet, 150 mg PO QAM #90 tabs 05/13/24 05/13/24 Rx extended release ezetimibe 10 mg tablet 10 mg PO DAILY #90 tabs 05/13/24 05/14/24 Rx rosuvastatin 40 mg tablet 40 mg PO DAILY #90 tabs 05/13/24 05/14/24 Rx Allergies Allergy/AdvReac Type Severity Reaction Status Date / Time No Known Allergies Allergy Verified 05/14/24 10:51 Vital Signs Vital Signs - 24 hr 05/14/24 10:57 Temperature 97.4 F L Pulse Rate 74 Respiratory Rate 16 Blood Pressure 127/92 H Pulse Oximetry 97 Oxygen Delivery Room Air Exam Const: General: cooperative and healthy appearing Resp: Effort & Inspection: normal respiratory effort and able to speak in complete sentences Auscultation: clear to auscultation bilaterally Cardio: Rate: regular rate Rhythm: regular rhythm GI: Inspection: normal to inspection GI Palp: No No hepatosplenomegaly present Auscultation: normal bowel sounds Rectal Exam: deferred Skin: General skin exam: normal color Psych: Appearance: grossly normal Mental Status: mental status grossly normal Assessment and Plan Assessment and plan (1) Cyclic vomiting syndrome: Code(s): R11.15 - Cyclical vomiting syndrome unrelated to migraine Status: Acute Assessment and Plan: The patient is deemed a good candidate for the procedure. Consent signed. Will proceed.
[2024-05-14 12:08] VITALS: BP 99/63; PULSE 75; RESP 25; O2SAT 94
[2024-05-14 12:18] VITALS: BP 121/73; PULSE 70; RESP 21; O2SAT 95
[2024-05-14 12:28] VITALS: BP 120/90; PULSE 67; RESP 20; O2SAT 98
== END 2024-05-14 12:44 | disposition home or self-care (01) ==
PROVIDERS: PCP Family Medicine; Visit Provider Internal Medicine Gastroenterology
PROC: 0DJ08ZZ Inspection of Upper Intestinal Tract, Via Natural or Artificial Opening Endoscopic (ICD-10-PCS; CPT 43239; principal; 2024-05-14 11:30)
DX: K29.50 Unspecified chronic gastritis without bleeding (principal); K21.9 Gastro-esophageal reflux disease without esophagitis; K44.9 Diaphragmatic hernia without obstruction or gangrene; E78.5 Hyperlipidemia, unspecified; J44.9 Chronic obstructive pulmonary disease, unspecified; I11.9 Hypertensive heart disease without heart failure; I25.10 Atherosclerotic heart disease of native coronary artery without angina pectoris; M19.021 Primary osteoarthritis, right elbow; M19.031 Primary osteoarthritis, right wrist; G56.03 Carpal tunnel syndrome, bilateral upper limbs; F12.90 Cannabis use, unspecified, uncomplicated; Z79.82 Long term (current) use of aspirin; Z79.51 Long term (current) use of inhaled steroids; Z98.890 Other specified postprocedural states; Z87.891 Personal history of nicotine dependence; Z95.5 Presence of coronary angioplasty implant and graft; Z86.718 Personal history of other venous thrombosis and embolism
CPT/HCPCS: 43239; 88305; J2003; J2704; J7120

== ENCOUNTER 2024-05-26 15:40 | Outpatient (CLI) | payer MEDICARE, MEDICAID, SELFPAY ==
--- NOTE | ~2024-05-26 | CT_ITS ---
EXAMINATION:CT lung screening DATE: 05/26/2024 15:58 INDICATION: Personal history of nicotine dependence. Current smoker with 40 pack year history. TECHNIQUE: Computed tomography (CT) of the chest was performed without intravenous contrast. Automate d exposure control and iterative reconstruction technique were employed. The dose-length product (DLP ) was 127.52 mGy-cm. COMPARISON: CT abdomen and pelvis 07/10/2014 FINDINGS: There is mild emphysema. There is a 4 mm nodule in right upper lobe. There is mild atelecta sis bilaterally. No pleural effusion. There is an aberrant right subclavian artery. The heart size is normal. There are coronary artery calcifications. No pericardial effusion. There is mild thoracic sp ondylosis. There is mild chronic anterior wedging of multiple vertebral bodies. IMPRESSION: 1. Lung-RADS category 2: Benign appearance or behavior. Continue annual screening with noncontrast lo w-dose chest CT in 12 months. Reviewed, dictated and finalized at location A. C T TECH IMPRESSION: 1. Lung-RADS category 2: Benign appearance or behavior. Continue annual screeni ng with noncontrast low-dose chest CT in 12 months.
--- OUTSIDE RECORDS SUMMARY | 2024-05-26 15:43 | XMS_ITS | Referral Summary ---
Author Organization [facility] Address [address] [place] [id number] Care Team Providers Care Display Manager Name Role Phone Elio Gtz MD Unavailable [phone] Thony Jewell MD Primary Care Provider [phone] Renea Maxwell MD Unavailable [phone] Kathi Espino Unavailable [phone] Allergies No known active allergies Medications Anoro [...] How often do you attend chur or temple services? Never 07/29/2021 Do you belong to any clubs o r organizations such as sabianist groups, unions, fraternal or athletic groups, or [...] place to sleep or slept in a mcc (including now)? No 07/29/2021 Personal Safety Answer Date Recorded Have you ever been in or are you currently in a harmful physical or emotional relationship or is someone making you feel afraid or unsafe? Denies 09/23/2023 Sex and Gender Information Value Date Recorded Sex Assigned at Not on file Legal Sex Male 5:20 PM CHARGE RN Gender Identity Not on file Sexual Orientation Not on file Last Filed Vital Signs Vital Sign Reading Time Taken Comments Blood Pressure 132/87 09/25/2023 4:15 PM CDT Pulse 81 09/25/2023 4:15 PM CDT Temperature 36.7 C (98 F) 09/25/2023 4:15 PM CDT Respiratory Rate 18 09/25/2023 4:15 PM CDT Oxygen Saturation 95% 09/25/2023 4:15 PM CDT Inhaled Oxygen Concentration - - Weight 104.3 kg (230 lb) 09/24/2023 10:38 PM CDT Height 177.8 cm (5' 10 ) 09/24/2023 10:38 PM CDT Body Mass Index 33 09/24/2023 10:38 PM CDT Plan of Treatment Not on file Medical Devices Implanted Type Area Engineer Steam Device Identifier Shelf Expiration Date Model / Serial / Lot Vidal Vascular 99614-06 Device Clsr Perclose Prostyle Sut-Mediatd Closure-Repair Sys - [id number] Implanted:Qty: 1 on 07/29/2021 by Elio Gtz MD at [facility] V[employer] [id number] / / Vidal Vascular [id number] Device Clsr Perclose Prostyle Sut-Mediatd Closure-Repair Sys - [id number] Implanted:Qty: 1 on 07/29/2021 by Elio Gtz MD at [facility] [employer] 16976-52 / / Impella Cp Percutaneous Left Ventricular Assist Device [id number] - [id number] - [id number] Implanted:Qty: 1 on 07/29/2021 by Elio Gtz MD at [facility] [employer] 05/16/2023 [id number] / [id number] / [id number] [employer] X [id number] Resolute [place] 3.5mm 2.1-2.7fr 22mm 140cm Rapid Exchange - [id number] Implanted:Qty: 1 on 07/29/2021 by Elio Gtz MD at [facility] [employer] 01/06/2024 [id number] / / [id number] Vidal Vascular Device Clsr Perclose Prostyle Sut-Mediatd Closure-Repair Sys 16925-04 - [id number] Implanted:Qty: 1 on 09/07/2022 by Elio Gtz MD at [facility] [employer] 05/16/2024 65500-07 / / [id number] Insurance [facility] IDPA MEDICARE Advance Directives For more information, please contact: [phone] * Full Code (Latest Code Status on File) Date Activated Date Inactivated Comments 09/24/2023 5:28 AM 09/25/2023 10:14 PM * Full Code Date Activated Date Inactivated Comments 09/07/2022 1:36 PM 09/07/2022 7:10 PM * Full Code Date Activated Date Inactivated Comments 07/29/2021 5:47 AM 07/31/2021 6:41 PM Care Teams Display Manager Relationship Specialty Start Date End Date Thony Jewell MD PCP - General Family Practice 08/29/22 Elio Gtz MD Consulting Physician Interventional Cardiology 07/31/21 Renea Maxwell MD [address] [place] [address] Consulting Physician Cardiology 09/25/23 [place] [address] [address] Physician Internet Marketing Manager Orthopedic Surgery 09/25/23
--- OUTSIDE RECORDS SUMMARY | 2024-05-26 15:43 | XMS_ITS | Clinical Summary ---
Author Organization [facility] Address [address] [place] [address] Care Team Providers Care Asbestos Coverer Name Role Phone Elio Gtz MD Unavailable [phone] Thony Jewell MD Primary Care Provider [phone] Renea Maxwell MD Unavailable [phone] Kathi Espino Unavailable [phone] Allergies No known active allergies Medications Anoro [...] any clubs o r organizations such as shinto groups, unions, fraternal or athletic groups, or [...] place to sleep or slept in a fdc (including now)? No 07/29/2021 Personal Safety Answer Date Recorded Have you ever been in or are you currently in a harmful physical or emotional relationship or is someone making you feel afraid or unsafe? 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 Gender Identity Not on file Sexual Orientation [...] 2023 04/10/2014 Medical Devices Implanted Type Area Word Processing Specialist Device Identifier Shelf Expiration Date Model / Serial / Lot Vidal Vascular 76986-17 Device Clsr Perclose Prostyle Sut-Mediatd Closure-Repair Sys - [id number] Implanted:Qty: 1 on 07/29/2021 by Elio Gtz MD at [facility] [employer] 57304-36 / / Vidal Vascular [id number] Device Clsr Perclose Prostyle Sut-Mediatd Closure-Repair Sys - [id number] Implanted:Qty: 1 on 07/29/2021 by Elio Gtz MD at [facility] [employer] 11115-35 / / Impella Cp Percutaneous Left Ventricular Assist Device [id number] - [id number] - [id number] Implanted:Qty: 1 on 07/29/2021 by Elio Gtz MD at [facility] [employer] 05/16/2023 [id number] / [id number] / [id number] [employer] X [id number] Resolute [place] 3.5mm 2.1-2.7fr 22mm 140cm Rapid Exchange - [id number] Implanted:Qty: 1 on 07/29/2021 by Elio Gtz MD at [facility] [employer] 01/06/2024 [id number] / / [id number] Vidal Vascular Device Clsr Perclose Prostyle Sut-Mediatd Closure-Repair Sys 71052-89 - [id number] Implanted:Qty: 1 on 09/07/2022 by Elio Gtz MD at [facility] [employer] 05/16/2024 [id number] / / [id number] Insurance [facility] OTHER Address: ATTN: CLAIMS DEPT [address] [place] [id number] MEDICARE [facility] Address: [address] [address] [place] [address] Advance Directives For more information, please contact: [phone] * Full Code (Latest Code Status on File) Date Activated Date Inactivated Comments 09/24/2023 5:28 AM 09/25/2023 10:14 PM * Full Code Date Activated Date Inactivated Comments 09/07/2022 1:36 PM 09/07/2022 7:10 PM * Full Code Date Activated Date Inactivated Comments 07/29/2021 5:47 AM 07/31/2021 6:41 PM Care Teams Asbestos Coverer Relationship Specialty Start Date End Date Thony Jewell MD PCP - General Family Practice 08/29/22 Elio Gtz MD Consulting Physician Interventional Cardiology 07/31/21 Renea Maxwell MD [address] [place] [address] Consulting Physician Cardiology 09/25/23 [place] [address] [address] Physician Intermodal Truck Driver Orthopedic Surgery 09/25/23
--- OUTSIDE RECORDS SUMMARY | 2024-05-26 15:43 | XMS_ITS | Clinical Summary ---
Author Organization [facility] Address [facility] [place] [address] Care Team Providers Care Drilling Contractor Name Role Phone Unavailable Primary Care Provider [...]
--- OUTSIDE RECORDS SUMMARY | 2024-05-26 15:43 | XMS_ITS | CONTINUITY OF CARE DOCUMENT ---
Author Name rosegirma galindojuan Address Unknown Organization [facility] Address [address] [place] [address] Phone [phone] Care Team Providers Care Docket Specialist Name Role Phone Elio Gtz MD Unavailable Elio Gtz MD Unavailable [phone] PROBLEMS Condition Status Date Provider Notes CAD (coronary artery disease) active Elio Gtz MD Hypertension, uncontrolled active Elio smith MD Hyperlipidemia active Elio Gtz MD Tobacco abuse active Elio Gtz MD NSTEMI active Elio Gtz MD Epigastric discomfort active Elio Gtz MD ENCOUNTERS Date Type Provider Location Encounter Diag nosis 0 - 0 In-person encounter Office Visit Elio Gtz MD [facility] 5 - 5 In-person encounter Office Visit Elio Gtz MD [facility] Epigastric discomfort 1 - 1 In-person encounter Office Visit Elio Gtz MD [facility] 2 - 2 In-person encounter Office Visit Elio Gtz MD [facility] 3 - 3 In-person encounter Office Visit Elio Gtz MD [facility] 2 - 2 In-person encounter Office Visit Elio Gtz MD [facility] CAD (coronary artery disease)Hypertension, uncontrolledHyperlipidemiaTobacco abuseNSTEMI [...] lder weight E&M 221 [lb_av] Luna [facility] height E&M 70 [in_i] Luna [facility] Body Mass Index (Ratio) 34.58 kg/m2 Lorenzo [...] blood pressure, cuff size large Mary rivas [place] blood pressure, diastolic 90 mm[Hg] Mary rivas [place] blood pressure, systolic 139 mm[Hg] Bry jocelynn [place] oxygen saturation, oximetry 99 % Fatemeh Segovia respiratory rate E&M 16 /min Cuortney rosi [place] pulse rate 82 /min Fatemeh Lázaro swanson [...] 87 mL/min/{1.73 _m2} LinkLogic >=60 Normal C, [place] [address] cholesterol, non-HDL, total 109 mg/dL LinkLogic C, [place] [address] lipoprotein, beta, serum, point, quantitative, calculated 75 mg/dL LinkLogic <=129 Normal C, [place] [address] HDL CHOLESTEROL 37 mg/dL [employer]ic >=40 Low C, [place] [address] triglyceride, serum, fasting 168 mg/dL [employer]ic <=149 High C, [place] [address] cholesterol, serum 146 mg/dL [employer] 30-199 Normal C, [place] [address] aspartate aminotransferase (SGOT), serum 24 1/L [employer] 10-50 Normal C, [place] [address] alanine aminotransferase (SGPT), serum 31 1/L [employer] 7-55 Normal C, [place] [address] Alkaline phosphatase 131 Link[employer]ic 40-130 High C, [place] [address] albumin, serum 4.6 g/dL [employer] 3.5-5.0 Normal C, [place] [address] protein, total, serum 8.4 g/dL [employer] 6.5-8.5 Normal C, [place] [address] bilirubin, serum, total 0.4 mg/dL [employer] 0.1-1.2 Normal C, [place] [address] calcium, serum 9.9 mg/dL [employer] 8.5-10.3 Normal C, [place] [address] blood glucose, random 98 mg/dL [employer] 70-199 Normal C, [place] [address] creatine, serum 1.01 mg/dL [employer] 0.80-1.30 Normal C, [place] [address] urea nitrogen, blood 9 mg/dL [employer] 6-25 Normal C, [place] [address] anion gap, serum 14 mmol/L [employer] 2-15 Normal C, [place] [address] carbon dioxide, venous blood 26 mmol/L [employer] 22-32 Normal C, [place] [address] chloride, serum 100 mmol/L [employer] 97-110 Normal C, [place] [address] potassium, serum 4.4 MMOL/L [employer] 3.3-4.9 Normal , [place] [address] sodium, serum 140 mmol/L [employer] 135-145 Normal C, [place] [address] prothrombin time (patient) 10.2 s [employer]ic 9.0-11.5 [...] smoking history, tot al pack/day 1 Luna Roemro cigarette use yes Luna wharton smoking status [...] Payer name Policy type / Coverage type [facility] [id number] HEALTHCARE AND FAMILY SERVICES Medicaid 1 [id number] ADVANCE DIRECTIVES Name Date DISCUSSED - NO DECISION MADE TREATMENT PLAN Date Name Performer [id number],N, Elio moralez MD [id number],S, Elio moralez MD [id number],S, Elio moralez MD [id number],SElio MD [id number],C, B P today: 130/90 P rior BP: 139/90 (11/25/2021) Labs Reviewed: C reat: 1.01 (01/03/2022) C hol: 155 (01/03/2022) HDL: 43 (01/03/2022) LDL: 82 MG/DL (CALC) (01/03/2022) T (01/03/2022) Elio Gtz MD [id number],C,L DL 82, TG 201, advised him to make diet changes and continue on current medications. Elio Gtz MD [id number],C, P t has diffuse CAD due to high LDL and TG and smoking. He has stopped smoking. Pt has mild LAD disease after diagonal bifurcation and siginifcant diagonal disease. Elio Gtz MD [id number],C, Successful unprotected LM PCI for severe left [...] assess his exercise tolerance. Elio Gtz MD [id number],S, His updated medication list for this problem includes: Rosuvastatin 40 Mg Tablet (Rosuvastatin) ..... Take 1 tablet by mouth once a day Ezetimibe 10 Mg Tablet (Ezetimibe) ..... Take 1 tablet by mouth once a day Elio Gtz MD [id number],S, Successful unprotected LM PCI for severe left [...] PDA. Asymptomatic. on GDMT Elio Gtz MD [id number],S, S till smoking. Elio Gtz MD [id number],S, B P today: 139/90 P rior BP: [...] mouth once a day Elio Gtz MD [id number],S,Recheck lipid s Elio Gtz MD [id number],B, Elio moralez MD [id number],B, Elio moralez MD [id number],C, Successful unprotected LM PCI for severe left [...] PDA. Asymptomatic. on GDMT Elio Gtz MD [id number],C,P t has diffuse CAD due to very high LDL and smoking. Pt has mild LAD disease after diagonal bifurcation and siginifcant diagonal disease. Elio Gtz MD [id number],S,T he Patient was reencouraged to stop smoking. Elio Gtz MD [id number],S,P t needs lab work to check lipid panel. His updated medication list for this problem includes: Ezetimibe 10 Mg Tablet (Ezetimibe) Rosuvastatin 40 Mg Tablet (Rosuvastatin) Elio Gtz MD [id number],C,U ncontrolled BP. Will order and RPM for pt. Pt needs cardiac rehab and smoking cessation. Will schedule renal Duplex, AA, and Carotid duplex for pt to check for any blockages. & #13;BP today: 140/90 His updated medication list for this problem includes: Metoprolol Tartrate 25 Mg Tablet (Metoprolol tartrate) Aspirin 81 Mg Tablet,chewable (Aspirin) Losartan 25 Mg Tablet (Losartan) Elio Gtz MD [id number],C,: I mpression: Successful unprotected LM PCI for [...] to large PL and PDA. [facility]. [facility] Elio Gtz MD Cardiology: S till smoking. [...]
--- OUTSIDE RECORDS SUMMARY | 2024-05-26 15:43 | XMS_ITS | Continuity of Care Document ---
Author Organization [facility] Address [address] [place] [address] [place] [address] Phone Care Team Providers Care Superintendent Automotive Name Role Phone Getachew Magallanes MD Unavailable [...] Copied on Encounter OFFICE/OUTPA TIENT VISIT, EST [facility], [address] [place] [address], [id number], [place] tel:[phone] [facility] Medicine ED1 (chief complaint)anx iety1 (chief complaint)chr onic pain1 (chief complaint) Chronic pain syndromeMale erectile dysfunction, unspecifiedGener alized anxiety disorderHyperlip idemia Dec 6 Elpidio Chilel. [address], [place], [place], [address] , [place]. tel:[phone] Referring Provider: Taco Herr [address], [place], [place], [id number]. tel:[phone] PREV VISIT, EST, AGE 40-64 [facility], [address], [place], [place], [address], [place] tel:[phone] [facility] Physical (chief complaint) Encntr for general adult medical exam w/o abnormal findings 5 Elpidio Chilel. [address], [address], [place], [place], [address] , [place]. tel:[phone] Referring Provider: Taco Herr [address], [place], [place], [address]. tel:[phone] OFFICE/OUTPA TIENT VISIT, EST [facility], [address], [place], [place], [address], [place] tel:[phone] [facility] anxiety (chief complaint)ins omnia (chief complaint)BEATRICE D (chief complaint)HLP (chief complaint)her quentin (chief complaint)ED (chief complaint) Dietary surveillance and counselingOther and unspecified hyperlipidemiaPa in in joint involving upper armBarrett esophagitisInsom quentin 5 Elpidio Chilel. [address], [address], [place], [place], [address] , [place]. tel:[phone] Referring Provider: Taco Herr [address], [place], [place], [address]. tel:[phone] OFFICE/OUTPA TIENT VISIT, EST [facility], [address], [place], [place], [address], [place] tel:[phone] [facility] abdominal pain (chief complaint)her quetnin (chief complaint)elb ow pain (chief complaint) Other and unspecified hyperlipidemiaAb dominal PainHernia of other specified sites without mention of obstruction or gangrene 5 Elpidio Chilel. [address], [address], [place], [address] , . tel:[phone] Referring Provider: Taco Herr [address], [place], [place], [address]. tel:[phone] OFFICE/OUTPA TIENT VISIT, [facility], [address] [place], [id number], tel:[phone] [facility] pancreatitis (chief complaint)HLP (chief complaint)LFT (chief complaint)elb ow pain (chief complaint)anx iety (chief complaint) Dietary surveillance and counselingAcute pancreatitisGene ralized anxiety disorderOther and unspecified hyperlipidemia 5 Elpidio Chilel. [address], [address] [place], [address] , . tel:[phone] Referring Provider: Taco Herr [facility] [address], [place], [place], [address]. tel:[phone] OFFICE/OUTPA TIENT VISIT, [facility], [address] [place] [address] [place], [address], [place] tel:[phone] [facility] HLP (chief complaint)LFT (chief complaint)thy roid (chief complaint)anx iety (chief complaint)elb ow pain (chief complaint) Dietary surveillance and counselingOther and unspecified hyperlipidemiaUn specified disorder of liverOther specified disorders of thyroidGeneraliz ed anxiety disorder 5 Elpidio Chilel. [address], [address] [place], [address] , [place]. tel:[phone] Referring Provider: Taco Herr [address], [place], [place], [address]. tel:[phone] OFFICE/OUTPA TIENT VISIT, [facility], [address] [place], [address], [place] tel:[phone] [facility] colitis (chief complaint)anx iety (chief complaint)elb ow fracture (chief complaint) Dietary surveillance and counselingColiti s, enteritis, and gastroenteritis of presumed infectious originAcute duodenal ulcer without mention of hemorrhage or perforation, with obstructionGener alized anxiety disorderPain in joint involving upper arm 5 Elpidio Chilel. [address], [address], [place], [place], [address] , [place]. tel:[phone] Referring Provider: Taco Herr [facility] [address], [place], [place], [address]. tel:[phone] OFFICE/OUTPA TIENT VISIT, [facility], [address], [place], [place], [address], [place] tel:[phone] [facility] anxiety (chief complaint)elb ow pain (chief complaint)singh creatitis (chief complaint) Dietary surveillance and counselingAcute pancreatitisGene ralized anxiety disorderPain in joint involving upper arm 4 Elpidio Chilel. [address], [place], [place], [address] , [place]. tel:[phone] Referring Provider: Taco Herr [facility] [address], [place], [place], [id number]. tel:[phone] PREV VISIT, NEW, AGE 40-64 [facility], [address], [place], [place], [address], [place] tel:[phone] [facility] Physical (chief complaint) Routine Medical ExamRoutine Medical Exam 4 Elpidio Chilel. [address], [place], [place], [address] , [place]. tel:[phone] Family History Family Member Type Diagnosis Age At Onset Mother Problem (finding) Unknown Disease Father Problem (finding) Unknown Disease Payers Payer name Insurance type Covered constitution party ID Authoriza tion(s) No Information Social [...] Date Complaint History Of Prese nt Illness ED1 Pt has ED. Pt noble s good libido. Pt denies any testicular pain or nodule. Pt has been having ED for several months. pt took his friend tricia which worked well. anxiety1 Pt has chronic a nxiety and [...] not want depression meds anymore chronic pain1 Pt has chornic e lbow pain on right side. Pt seen ortho and was told he has ulnar nerve issue and he needs surgery but he told me he does not have time for surgery due to work Pt notices hand weakness sometimes. Physical Pt needs annual physical. Pt has [...] but he thinks it is too strong. anxiety Additional infor mation: Pt has anxiety and depression and mood swings. Pt has been taking prozac and lamictal and doing ok. Pt denies any suicidal thought. insomnia The patient pres ents for insomnia. Relevant history: a BMI of 27.89. Additional information: Pt states that he hsa diffiuclty falling asleep. Pt denies any snoring or any daytime fatigue. GERD Additional infor mation:Pt has corral esophagus. Pt takes omerpazole but only once per day. Pt is noncompliant. Pt denies any GI complaints. HLP Pt states that h e takes zocor but he is not taking daily. He still has not done lab yet hernia Additional infor mation: Pt recently had abdominal hernia surgery. PT c/o pain around umblical area/ Pt denies any drainage. Pt denies any other type of abd pain. Pt did not don HIDA scan. ED Pt has low libid o and ED for several months. Pt denies any testicular pain or issue elbow pain Pt has low libid o and ED for several months. Pt denies any testicular pain or issue Instructions Date Instruction Additional Infor mation Prescribed [...] counseling Rel ated to Dietary surveillance counseling Dietary counseling Related [...] Mental Status Date Cognitive Assessment Orientation - [place] ed to time, place, person, situation.
== END 2024-05-26 15:41 | disposition home or self-care (01) ==
PROVIDERS: PCP Family Medicine; Visit Provider Family Medicine
DX: Z12.2 Encounter for screening for malignant neoplasm of respiratory organs (principal); Z87.891 Personal history of nicotine dependence
CPT/HCPCS: 71271

== ENCOUNTER 2024-10-23 09:28 | Outpatient (CLI) | payer MEDICARE, MEDICAID, SELFPAY ==
--- NOTE | ~2024-10-23 | XR_ITS ---
EXAM/ PROCEDURE: XR wrist RT 2V - 10/23/2024 9:44 CDT HISTORY: 59 years old Male with M25.531 - Pain in right wrist X 10 YEARS COMPARISON: None available TECHNIQUE: Two view(s) FINDINGS/ IMPRESSION: There are no fractures or dislocations.Joint spaces are within normal limits. Reviewed, dictated and finalized at location A.
--- OUTSIDE RECORDS SUMMARY | 2024-10-23 09:38 | XMS_ITS | Referral Summary ---
Author Organization [facility] Address [address] [place] [id number] Care Team Providers Care Prepress Manager Name Role Phone Elio Gtz MD Unavailable [phone] Thony Jewell MD Primary Care Provider [phone] Renea Maxwell MD Unavailable [phone] Kathi Espino Unavailable [phone] Allergies No known active allergies Medications Anoro [...] mg total) by mouth daily 30 tablet 4 Active ezetimibe (ZETIA) 10 mg tablet Take 1 tablet (10 mg total) by mouth nightly 30 tablet 4 Active nitroglycerin (NITROSTAT) 0.[address] 1 tablet (0.4 mg total) under the tongue every 5 (five) minutes as needed for chest pain 30 tablet 4 Active rosuvastatin (CRESTOR) 40 mg tablet Take 1 tablet (40 mg total) by mouth nightly 30 tablet 11 4 Active albuterol HFA (ProAir HFA) 90 mcg/actuation inhaler Inhale 2 puffs every 4 (four) hours as needed for wheezing or shortness of breath 8.5 g 11 4 Active Active Problems Problem Noted Date Diagnosed [...] week 07/29/2021 How often do you attend [facility] or islam services? 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 Gender Identity Not on file Sexual Orientation [...] 10:38 PM CDT Height 177.8 cm (5' 10) 09/24/2023 10:38 PM CDT Body Mass Index 33 09/24/2023 10:38 PM CDT Plan of Treatment Not on file Medical Devices Implanted Type Area Stringed Instrument Repairer Device Identifier Shelf Expiration Date Model / Serial / Lot Vidal Vascular 29072-21 Device Clsr Perclose Prostyle Sut-Mediatd Closure-Repair Sys - [id number] Implanted:Qty: 1 on 07/29/2021 by Elio Gtz MD at [facility] [employer] 87544-86 / / Vidal Vascular [id number] Device Clsr Perclose Prostyle Sut-Mediatd Closure-Repair Sys - [id number] Implanted:Qty: 1 on 07/29/2021 by Elio Gtz MD at [facility] [employer] 64541-80 / / Impella Cp Percutaneous Left Ventricular Assist Device [id number] - [id number] - [id number] Implanted:Qty: 1 on 07/29/2021 by Elio Gtz MD at [facility] [employer] 05/16/2023 [id number] / [id number] / [id number] Med[employer] X [id number] Resolute Comfort 3.5mm 2.1-2.7fr 22mm 140cm Rapid Exchange - [id number] Implanted:Qty: 1 on 07/29/2021 by Elio Gtz MD at [facility] [employer] 01/06/2024 [id number] / / [id number] Vidal Vascular Device Clsr Perclose Prostyle Sut-Mediatd Closure-Repair Sys 85710-15 - [id number] Implanted:Qty: 1 on 09/07/2022 by Elio Gtz MD at [facility] [employer] 05/16/2024 [id number] / / [id number] Insurance ID[employer] MEDICARE Advance Directives For more information, please contact: [phone] * Full Code (Latest Code Status on File) Date Activated Date Inactivated Comments 09/24/2023 5:28 AM 09/25/2023 10:14 PM * Full Code Date Activated Date Inactivated Comments 09/07/2022 1:36 PM 09/07/2022 7:10 PM * Full Code Date Activated Date Inactivated Comments 07/29/2021 5:47 AM 07/31/2021 6:41 PM Care Teams Prepress Manager Relationship Specialty Start Date End Date Thony Jewell MD PCP - General Family Practice 08/29/22 Elio Gtz MD Consulting Physician Interventional Cardiology 07/31/21 Renea Maxwell MD [address] [place] [address] Consulting Physician Cardiology 09/25/23 [place] [address] [address] Physician Wetlands Technician Orthopedic Surgery 09/25/23
--- OUTSIDE RECORDS SUMMARY | 2024-10-23 09:38 | XMS_ITS | Clinical Summary ---
Author Organization [facility] Address [address] [place] [address] Care Team Providers Care Recovery Analyst Name Role Phone Elio Gtz MD Unavailable Thony Jewell MD Primary Care Provider [phone] Renea Maxwell MD Unavailable [phone] Kathi Espino Unavailable [phone] Allergies No known active allergies Medications Anoro [...] by mouth nightly 30 tablet 4 Active albuterol HFA (ProAir HFA) 90 mcg/actuation inhaler Inhale 2 puffs every 4 (four) hours as needed for wheezing or shortness of breath 8.5 g 4 Active Active Problems Problem Noted Date [...] 07/29/2021 How often do you attend chur ch or taoism services? Never 07/29/2021 Do you belong to any clubs o r organizations such as religion groups, unions, fraternal or athletic groups, or [...] place to sleep or slept in a usp (including now)? No 07/29/2021 Personal Safety Answer Date Recorded Have you ever been in or are you currently in a harmful physical or emotional relationship or is someone making you feel afraid or unsafe? 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 Vascular [id number] / / Impella Cp Percutaneous Left Ventricular Assist Device [id number] - [id number] - [id number] Implanted:Qty: 1 on 07/29/2021 by Elio Gtz MD at [facility] [employer] 05/16/2023 [id number] / [id number] / [id number] [employer] X [id number] Resolute [place] 3.5mm 2.1-2.7fr 22mm 140cm Rapid Exchange - [id number] Implanted:Qty: 1 on 07/29/2021 by Elio Gtz MD at [facility] [employer] 01/06/2024 [id number] / / [id number] Vidal Vascular Device Clsr Perclose Prostyle Sut-Mediatd Closure-Repair Sys 35003-64 - [id number] Implanted:Qty: 1 on 09/07/2022 by Elio Gtz MD at [facility] [employer] 05/16/2024 [id number] / / [id number] [place] [address] [place] Advance Directives For more information, please contact: [phone] * Full Code (Latest Code Status on File) Date Activated Date Inactivated Comments 09/24/2023 5:28 AM 09/25/2023 10:14 PM * Full Code Date Activated Date Inactivated Comments 09/07/2022 1:36 PM 09/07/2022 7:10 PM * Full Code Date Activated Date Inactivated Comments 07/29/2021 5:47 AM 07/31/2021 6:41 PM Care Teams Recovery Analyst Relationship Specialty Start Date End Date Thony Jewell MD PCP - General Family Practice 08/29/22 Elio Gtz MD Consulting Physician Interventional Cardiology 07/31/21 Renea Maxwell MD [address] [place] [address] Consulting Physician Cardiology 09/25/23 [place] [address] [address] Physician Fixed Wing Aircraft Crew Chief Orthopedic Surgery 09/25/23
--- OUTSIDE RECORDS SUMMARY | 2024-10-23 09:38 | XMS_ITS | Clinical Summary ---
Author Organization [facility] Address [facility] [place] [address] Care Team Providers Care Environmental Air Specialist Name Role Phone Unavailable Primary Care Provider [...] of 3 - 19+ 3-dose series) 1985 Pneumococcal Vaccine: 50+ Ye ars (1 of 1 - PCV) 2016 Zoster Vaccines (1 of 2) 2016 COVID-19 Vaccine (2023-2 5 season) 2023 Meningococcal B Vaccine Aged Out No l onger eligible based on patient's age to complete this topic Meningococcal Vaccine Aged Out No andres thalia eligible based on patient's age to complete this topic RSV Immunizations Under 20 Months Aged Out No longer eligible based on patient's age to complete this topic
== END 2024-10-23 09:29 | disposition home or self-care (01) ==
PROVIDERS: PCP Family Medicine; Visit Provider Nurse Practitioner Family
DX: M25.531 Pain in right wrist (principal)
CPT/HCPCS: 73100